=== PATIENT | male | born 1965 | race Caucasian/White ===

== ENCOUNTER → 2025-02-05 07:52 | Outpatient (REF) | payer OTHER, SELFPAY | LOC: RAD 07:52 | PROVIDERS: ATTENDING PHYSICIAN Student in an Organized Health Care Education/Training Program | DX: M25.511 Pain in right shoulder (principal); M79.601 Pain in right arm | CPT/HCPCS: 73030; 73080 ==

== ENCOUNTER → 2025-03-16 06:35 | Outpatient (REF) | payer OTHER, SELFPAY | LOC: PAVMRI 06:35 | PROVIDERS: ATTENDING PHYSICIAN Specialist; FAMILY PHYSICIAN Student in an Organized Health Care Education/Training Program | DX: M25.511 Pain in right shoulder (principal) | CPT/HCPCS: 73221 ==